=== PATIENT | female | born 1940 | race Caucasian/White ===

== ENCOUNTER 2019-09-03 13:20 | Inpatient (IN) ==
[2019-09-03] MEDS ORDERED: ASPIRIN PO ONE (13:52)
--- NOTE | 2019-09-03 14:19 | EKG Report ---
Test Performed on : 09/03/2019 1:58:19 PM Test Reason : sob Blood Pressure : / mmHG Vent. Rate : 076 BPM Atrial Rate : 076 BPM P-R Int : 106 ms QRS Dur : 090 ms QT Int : 392 ms P-R-T Axes : 000 -15 095 degrees QTc Int : 441 ms Sinus rhythm. with short HI Left ventricular hypertrophy with repolarization abnormality Abnormal ECG No previous ECGs available Unconfirmed Result
--- NOTE | 2019-09-03 14:27 | Diag Imaging Result Doc PS360 ---
EXAM: CHEST-2 VIEWS 09/03/2019 HISTORY: sob TECHNIQUE: PA and lateral chest COMMENT: There is cardiomegaly, interstitial pulmonary edema, and small right pleural effusion. There are no previous studies. IMPRESSION: Pulmonary edema, cardiomegaly, and right pleural effusion. Electronically signed by Wade Diana 09/03/2019 2:25 PM
[2019-09-03 14:57] LABS: BASO# 0.02 X1000 (0.0-0.2); BASO% 0.2 % (0.0-0.8); EOS# 0.09 X1000 (0.0-0.7); EOS% 0.8 % (0.0-10.0); HEMATOCRIT 34.8 % (37.0-47.0); HEMOGLOBIN 10.8 g/dL (12.0-16.0); IMM GRAN# 0.03 X1000 (0.0-0.04); IMM GRAN% 0.3 % (0.0-0.5); LYMPH% 17.1 % (20.5-51.1); MCH 27.8 PG (27-31); MCV 89.7 FL (81-99); MONO# 0.93 X1000 (0.11-0.59); MONO% 8.3 % (1.7-9.3); MPV 10.5 FL (7.4-10.4); NEUT# 8.17 X1000 (1.4-6.5); NEUT% 73.3 % (42.2-75.2); PLT 265 X1000 (130-400); RBC 3.88 XMIL (4.2-5.4); RDW 13.6 % (11.5-14.5); WBC 11.14 X1000 (4.8-10.8)
[2019-09-03 15:06] LABS: INR 1.14; PROTIME 14.8 Seconds (11.0-16.0)
[2019-09-03 15:25] LABS: ALB/GLOB RATIO 1.6; ALBUMIN 4.1 g/dL (3.5-5.0); CALCIUM 9.6 mg/dL (8.8-10.2); CREATININE 2.3 mg/dL (0.5-0.9); POTASSIUM 4.3 mmol/L (3.5-5.1); TOTAL BILIRUBIN 0.78 mg/dL (0.20-1.00); TOTAL PROTEIN 6.7 g/dL (6.3-8.3)
--- NOTE | 2019-09-03 17:18 | PROVIDER DOCUMENTATION ---
This chart was entered by Arabella Sanabria Scribe, acting as scribe for Ajay Lassiter MD. HPI-Respiratory General - General Chief Complaint: Shortness of Breath Stated Complaint: SOB Time Seen by Provider: 09/03/19 14:49 Source: patient - History of Present Illness-Resp Nature of Presenting Problem: 79 y/o female presents to ED with SOB onset 4 days ago. Pt reports she thinks it is a fluid issue. Pt states she has noticed increased swelling to her legs and abdomen. Pt reports she takes 60 mg lasix daily with variable urine output. Pt denies pain and does not report any other symptoms. Pt denies hx CHF. Patient does have hx of CKD and is followed by Dr. Corea. Pt is alert and in no acute distress. Quality of Pain: reports: none Severity in ED: reports: mild Onset/Duration: reports: 3 days ago, 4 days ago Timing: reports: still present Context: reports: other Exposure: reports: unknown cause Cough Quality/Degree: reports: no cough Current Respiratory Medication Therapy: Initiated see nurses note, Initiated other (lasix 60mg daily) Modifying Factors: improves with: nothing Associated Symptoms: reports: shortness of breath, short of breath, other (increased swelling to legs/abdomen) Review of Systems - Adult - REVIEW OF SYSTEMS - ADULT Constitutional: reports: no symptoms reported. denies: fever Eyes: reports: no symptoms reported. denies: eye pain Ears, Nose, Mouth & Throat: reports: no symptoms reported. denies: throat pain Cardiovascular: reports: edema. denies: chest pain Respiratory: reports: shortness of breath. denies: cough Gastrointestinal: reports: no symptoms reported. denies: abdominal pain Genitourinary: reports: no symptoms reported. denies: urinary retention Musculoskeletal: reports: joint pain (chronic knee arthritis) Integumentary: reports: rash (erythema of the LE), other (increased swelling to legs/abdomen) Neurological: reports: no symptoms reported Psychiatric: reports: no symptoms reported Endocrine: reports: no symptoms reported Hematologic/Lymphatic: reports: no symptoms reported, other (no bleeding) Allergic/Immunologic: reports: no symptoms reported All Other Systems: Reviewed and Negative Past History - Adult - PAST MEDICAL HISTORY-ADULT Review of Records: reports: Old Records Reviewed, Nursing Assessment Review, Medications Reviewed Major Childhood Illnesses: reports: denies history Genitourinary: reports: kidney disease Endocrine/Immune: reports: Diabetes - IMMUNIZATION STATUS Childhood Immunizations: See Nurse Assessment Flu Vaccine: See Nurse Assessment - FAMILY HISTORY Family History: other (kidney disease) - SOCIAL HISTORY Smoking: chew Substance Use: none/never Alcohol Use Frequency: never Physical Exam-General - CONSTITUTIONAL General Appearance: appears well, alert, no apparent distress - EYES Eyes: negative: conjuctival exudate, photophobia, scleral icterus - HEAD, EARS, NOSE, MOUTH & THROAT HENMT: normocephalic/atraumatic, moist mucous membranes, pharynx normal. negative: hearing deficit - NECK Neck: non-tender - RESPIRATORY Respiratory: respiratory distress (mild IWOB), decreased breath sounds - CARDIOVASCULAR Cardiovascular: regular rate, rhythm. negative: no edema (3+ bilateral LE edema) - GASTROINTESTINAL (ABDOMEN) Abdominal Exam: non tender, soft, distended (mild) - MUSCULOSKELETAL Extremity: non-tender, swelling - SKIN Integumentary: normal color, warm/dry, other (venous stasis changes of the LE) - NEUROLOGIC Neurologic: grossly normal - PSYCHIATRIC Psych/Mental Status: normal mood/affect, normal thought content, normal thought process - HEART Score HEART Score: History: Slightly Suspicious HEART Score: ECG: Non-Specific Repolarization Disturbance/LBBB/PM HEART Score: Age: > or = 65 Years HEART Score: Risk Factors for Atherosclerotic Disease: > or = 3 Risk Factors or History of Atherosclerotic Disease Progress - PLAN OF CARE/RESULTS Progress/Plan/Lab Results: Vital Signs - 8 hr 09/03/19 13:49 09/03/19 16:35 Temperature 98.5 F 98.0 F Pulse Rate 78 73 Respiratory Rate 19 19 Blood Pressure 197/78 179/61 O2 Sat by Pulse Oximetry 97 98 Laboratory Results - last 24 hr 09/03/19 09/03/19 09/03/19 14:02 14:02 14:02 WBC 11.14 H RBC 3.88 L Hgb 10.8 L Hct 34.8 L MCV 89.7 MCH 27.8 MCHC 31.0 L RDW Std Deviation 13.6 Plt Count 265 MPV 10.5 H Immature Gran % (Auto) 0.3 Neut % (Auto) 73.3 Lymph % (Auto) 17.1 L Lea % (Auto) 8.3 Eos % (Auto) 0.8 Baso % (Auto) 0.2 Immature Gran # (Auto) 0.03 Neut # (Auto) 8.17 H Lymph # (Auto) 1.90 Lea # (Auto) 0.93 H Eos # (Auto) 0.09 Baso # (Auto) 0.02 PT INR PTT (Actin FS) Sodium 139 Potassium 4.3 Chloride 99 Carbon Dioxide 26 Anion Gap 14 BUN 38 H Creatinine 2.3 H Estimated GFR/1.73 m2 21 BUN/Creatinine Ratio 17 Glucose 128 H Calculated Osmolality 288 Calcium 9.6 Total Bilirubin 0.78 AST 17 ALT 16 Alkaline Phosphatase 105 H Creatine Kinase 37 Troponin T Jhv-U-Stuylyrdvbr Pept 2682 H Total Protein 6.7 Albumin 4.1 Globulin 2.6 Albumin/Globulin Ratio 1.6 09/03/19 09/03/19 14:02 14:02 WBC RBC Hgb Hct MCV MCH MCHC RDW Std Deviation Plt Count MPV Immature Gran % (Auto) Neut % (Auto) Lymph % (Auto) Lea % (Auto) Eos % (Auto) Baso % (Auto) Immature Gran # (Auto) Neut # (Auto) Lymph # (Auto) Lea # (Auto) Eos # (Auto) Baso # (Auto) PT 14.8 INR 1.14 PTT (Actin FS) 40.0 Sodium Potassium Chloride Carbon Dioxide Anion Gap BUN Creatinine Estimated GFR/1.73 m2 BUN/Creatinine Ratio Glucose Calculated Osmolality Calcium Total Bilirubin AST ALT Alkaline Phosphatase Creatine Kinase Troponin T < 0.010 Yba-P-Kvsjutvzvoz Pept Total Protein Albumin Globulin Albumin/Globulin Ratio Orders Category Date Time Status Admit - [facility] Routine AdmDCTranf 09/03/19 17:38 Active Activity - Up Ad Yuli ORDERED Care 09/03/19 17:38 Active Call Admitting on Arrival AT ADMISSION Care 09/03/19 17:39 Active Cardiac Monitoring DIRECTED Care 09/03/19 13:52 Active Saline Loc NOW Care 09/03/19 13:52 Active Vital Signs Order ARRIVAL TO ROOM Care 09/03/19 17:38 Active Z-Document. for Tele Applied ORDERED Care 09/03/19 17:39 Active Diabetic Diet Diet 09/03/19 Diet Enter Time Active NPO Diet 09/04/19 00:01 Active CHEST-2 VIEWS [RAD] Stat Exams 09/03/19 13:52 Completed CBC WITH ELECTRONIC DIFF [HEME] Stat Lab 09/03/19 14:02 Completed CK PROFILE [SP CHEM] Stat Lab 09/03/19 14:02 Completed COMPREHENSIVE METABOLIC PANEL [CHEM] Stat Lab 09/03/19 14:02 Completed PRO B-NATRIURETIC PEPTIDE Stat Lab 09/03/19 14:02 Completed PROTIME WITH INR [COAG] Stat Lab 09/03/19 14:02 Completed PTT [COAG] Stat Lab 09/03/19 14:02 Completed TROPONIN T Stat Lab 09/03/19 14:02 Completed Aspirin Med 09/03/19 13:52 Discontinued 325 mg PO NOW ONE CP/SOB/Palp >45 yrs of Age Stat Oth 09/03/19 13:52 Ordered Oxygen Device Routine Oth 09/03/19 17:39 Active Telemetry [OM.EQ] Routine Oth 09/03/19 17:38 Active EKG [EKG] Stat Ther 09/03/19 13:52 Draft Transfer/Admit Order [TRANSFER] Routine Transfer 09/03/19 17:40 Ordered Result Diagrams: 09/03/19 14:02 09/03/19 14:02 - REASSESSMENT Reassessment #1 Status: other (Scribe note reviewed/updated.) Reassessment #2 Status: other (Discussed case with kyrie Garcia new onset CHF will plan to admit.) - EKG 1 Time of EKG reading by physician:: 14:29 EKG Read and Signed by:: Ajay Lassiter EKG Interpretation (*Must complete 3 of following elements*): Abnormal Rate: 76 Rhythm: Sinus with short WI [place]: normal QRS: LVH (with repolarization abnormality) WI Interval: shortened ST Wave: non-specific ST changes Comments: No STEMI. -Dr. Lassiter - XRAY 1 XRAY Study: Chest Impression: See EMR Report ([facility] - [address], [address], [place] [address] [facility] - [address] [place] [address] Department of Imaging Patient: LAVONNE CULLEN Date: 09/03/19MR#: [id number] : 1940DM Status: PRE ERAcct#: [id number] Age/Sex: 79/FRoom/Bed: Loc: ED Ordering Physician: Patt Soliman MD Family Physician: Pedro Cassidy MD Reason for Procedure: sob Signed EXAM: CHEST-2 VIEWS 09/03/2019 HISTORY: sob TECHNIQUE: PA and lateral chest COMMENT: There is cardiomegaly, interstitial pulmonary edema, and small right pleural effusion. There are no previous studies. IMPRESSION: Pulmonary edema, cardiomegaly, and right pleural effusion. Electronically signed by Wade Diana 09/03/2019 2:25 PM 09/03/19 1425 Interpreting Physician: Wade Diana MD Dictated Date/Time: 09/03/19 1424 cc: Patt Soliman MD; Pedro Cassidy MD) - CONSULTS/PCP/HOSPITALIST Notification #1 *Consult/PCP/Hospitalist*: Hospitalist Consult Disposition: Admit Departure - Departure Date of Disposition Decision: 09/03/19 Time of Disposition Decision: 17:47 DIAGNOSIS: Acute dyspnea Congestive heart disease Qualifiers: Heart failure type: other Qualified Code(s): I50.9 - Heart failure, unspecified Disposition: ADMITTED INPATIENT 09 Certified Medical Emergency: Emergent Condition: Fair Referrals and Follow-Ups: Pedro Cassidy MD [Primary Care Provider] - Discharge Education: Steps to Quit Smoking, [id number] - Critical Care Note This patient required my direct & personal management of CC.: No Attestation - Physician/ CRISTIAN Attestation Patient care was provided by Advanced Practice Provider:: No The physician spent face to face time with patient:: Yes Advanced Practice Provider documentation review:: Supervising physician onsite and consulted in the evaluation and care of this patient. The physician did have a face to face encounter with the patient. This chart was documented by the indicated scribe, (Arabella Sanabria Scribe) and accurately reflects the services I performed and decisions made by me, Ajay Lassiter MD, as attested by the provider's signature.
[2019-09-03] MEDS ORDERED: LASIX IV ONE (19:15)
--- NOTE | 2019-09-03 20:56 | HISTORY AND PHYSICAL ---
HISTORY OF PRESENT ILLNESS: Ms. Medina is a 79-year-old white female with a known case of diabetes and hypertension for a long time. She has insulin-dependent diabetes, obesity, hypertension, and recent onset of renal failure. The kidney failure has been there for about over a year now. She also has severe degenerative disc disease in the lumbar spine and severe arthritis in both knees. Never had any surgery except for some growth taken out from the right buttock. MEDICATIONS: Include upper verapamil/Isoptin 240, pravastatin 40 mg, KCl 8 mEq b.i.d., and irbesartan 75 mg daily. She also takes 20 mg of Lasix daily and Lantus insulin on a daily basis. SOCIAL HISTORY: She does not smoke and does not drink. ALLERGIES: No definite allergies recorded. REVIEW OF SYSTEMS: Respiratory: She has been having shortness of breath for the last several days. No history of chest pain. Musculoskeletal: She has generalized weakness. Cannot walk more than a block without getting out of breath. GI: No problems. : No problems. Endocrine: No problems. Breasts: No problems. PHYSICAL EXAMINATION: GENERAL: The patient is alert and oriented. VITAL SIGNS: Temperature normal. Pulse 78 per minute, regular. Respiratory rate 19 per minute, blood pressure 179/61. HEAD: Normocephalic. Pupils PERRLA. Fundus examination normal. NECK: Supple. JVP normal. There is no evidence of lymphadenopathy or thyroid enlargement ENT: Unremarkable. EXTREMITIES: There is bilateral mild pedal edema with some evidence of cellulitis. Pedal pulses feeble. BREAST EXAM: Not done. CHEST: Normal inspection. Lungs reveal poor air entry on the right base with occasional rales on the left base. PMI could not be located. CARDIOVASCULAR: Heart sounds normal. No murmur, gallop or rub noted. ABDOMEN: Obese. Hernial orifice normal. No guarding, rigidity, free fluid, masses, or organomegaly. Bowel sounds normal. RECTAL: Deferred. AUDIO VISUAL FACILITIES ENGINEER: Higher functions normal. Cranial nerves normal. Motor and sensory system examination unremarkable. Deep tendon reflexes normal. Plantars downgoing. Skull and spine examination normal for age. No cerebellar signs. No signs of meningeal irritation. Normal locomotor exam. SKIN: Unremarkable except for the evidence of cellulitis on both legs with bilateral leg edema. LABORATORY AND DIAGNOSTIC DATA: Chest x-ray shows pulmonary edema with a right-sided pleural effusion. EKG shows regular sinus rhythm with evidence of old anteroseptal myocardial infarction. ProBNP is elevated. ASSESSMENT: The patient is in congestive heart failure. PLAN: To give IV Lasix. Get a Cardiology consultation in the morning. cc: Pedro Cassidy MD
[2019-09-03] MEDS: LEVAQUIN 500 MG/D5W 500 MG/100 ML IVPB IV SCH (21:58)
[2019-09-03] MEDS: LOVENOX SUBQ SCH (21:58)
[2019-09-03] MEDS: MICRO-K PO SCH (22:34)
[2019-09-03 23:21] LABS: URINE SOURCE CLEAN CATCH
[2019-09-03 23:36] LABS: BILIRUBIN URINE NEGATIVE (NEGATIVE); BLOOD URINE NEGATIVE (NEGATIVE); COLOR YELLOW; GLUCOSE URINE NEGATIVE (NEGATIVE); KETONE URINE NEGATIVE (NEGATIVE); LEUKOCYTES URINE NEGATIVE (NEGATIVE); NITRITE URINE NEGATIVE (NEGATIVE); PROTEIN URINE 70 mg/dL (NEGATIVE); SP GRAVITY URINE 1.008; TURBIDITY URINE CLEAR (CLEAR); UROBILINOGEN URINE NORMAL (NORMAL)
[2019-09-03 23:39] LABS: UR EPITHELIAL CELLS <10 /HPF (<10); URINE BACTERIA NEGATIVE /HPF; URINE RBC <10 /HPF (<10); URINE WBC <10 /HPF (<10)
[2019-09-04] MEDS: PROTONIX PO SCH (05:59)
[2019-09-04] MEDS ORDERED: LASIX IV SCH (07:30)
[2019-09-04] MEDS ORDERED: ISOPTIN SR PO SCH ×2 (09:00→11:00)
[2019-09-04] MEDS ORDERED: AVAPRO PO SCH (09:00)
[2019-09-04] MEDS ORDERED: LASIX PO SCH (09:00)
[2019-09-04] MEDS: MICRO-K PO SCH ×2 (09:50→21:20)
[2019-09-04] MEDS: FISH OIL CONCENTRATE PO SCH (09:51)
[2019-09-04] MEDS: THERA M PLUS PO SCH (09:51)
[2019-09-04] MEDS: LOVENOX SUBQ SCH ×2 (09:52→21:20)
[2019-09-04] MEDS: PATIENT'S OWN MED PO SCH (09:54)
[2019-09-04] MEDS: LANTUS INSULIN SUBQ SCH (10:05)
--- NOTE | 2019-09-04 13:47 | PROGRESS NOTE ---
DATE: 09/04/2019 Ms. Medina has congestive heart failure, right-sided pleural effusion. She has diabetes. Her blood sugar was low. We are going to start some regular but diabetic diet as sugar was low and on account of being Friday and I personally feel like there will not be any procedures ordered. She has not been yet seen by the vp software support. -6 cc: Pedro Cassidy MD
--- NOTE | 2019-09-04 18:21 | CARDIOLOGY CONSULTATION ---
DATE: 09/04/2019 CHIEF COMPLAINT: Shortness of breath. HISTORY OF PRESENT ILLNESS: Ms Medina is a 79-year-old white female with a history of hypertension, diabetes, who presents for evaluation of shortness of breath that essentially progressed for the last 3 months since she was taken off her hydrochlorothiazide. It significantly worsened over the last 3 to 4 days. It sounds like she has been eating out quite a bit more over the last couple weeks specifically fast-food and other high salt locations. She denies any overt orthopnea. Her shortness of breath seems to occur with exertion over the distance of walking across a room. PAST MEDICAL HISTORY: 1. Significant for hypertension. 2. Diabetes . 3. Hyperlipidemia. SOCIAL HISTORY: She does not smoke. FAMILY HISTORY: Significant for hypertension. REVIEW OF SYSTEMS: A 10 system review of systems is negative except for those things mentioned in HPI. PHYSICAL EXAMINATION: She is afebrile, heart rate 82, blood pressure 184/66.General: She is in no acute distress. HEENT: Oropharynx is moist. Normal dentition. Eyes show pink conjunctivae, white sclerae. Neck: Shows no obvious thyromegaly or thyroid tenderness. Cardiovascular: She sounds to be in a regular rate and rhythm. She has a 2/6 systolic ejection murmur that is heard somewhat throughout the precordium. She has marked bilateral lower extremity edema. Her chest sounds relatively clear but very distant. She has no increased work of breathing. Abdomen: Soft, nontender. Neurological: She is moving all extremities well. She has no lateralizing deficits. PERTINENT DATA: She had a chest x-ray on presentation that shows pulmonary edema, cardiomegaly and a right-sided pleural effusion. Her electrocardiogram demonstrates sinus rhythm, poor R-wave progression, low voltage in the precordium. Her lab data shows a white count of 11.1, hematocrit 34, platelet count 265,000. Sodium 139, potassium 4.3, BUN 38, creatinine is 2.3, her proBNP is 2682. ASSESSMENT: Ms. Medina is a 79-year-old female with a history of hypertension and diabetes who presents with heart failure. PLAN: We will check an echocardiogram in the morning as well as repeat laboratories including a BMP, magnesium and proBNP. I will increase her ARB to 150 mg daily. We will continue on her IV Lasix. cc: MD Pedro Shah MD
[2019-09-04] MEDS: PRAVACHOL PO SCH (21:20)
[2019-09-04] MEDS: AMBIEN PO SCH (21:20)
[2019-09-04] MEDS: LASIX IV SCH (21:20)
[2019-09-04] MEDS: LEVAQUIN 500 MG/D5W 500 MG/100 ML IVPB IV SCH (21:21)
[2019-09-05] MEDS ORDERED: CATAPRES PO ONE (02:29)
[2019-09-05] MEDS ORDERED: CATAPRES PO PRN (02:29)
[2019-09-05] MEDS: AFRIN NASAL SPRAY NAS SCH ×3 (03:30→21:00)
[2019-09-05] MEDS: PROTONIX PO SCH (06:10)
[2019-09-05 08:22] LABS: CALCIUM 8.9 mg/dL (8.8-10.2); CREATININE 2.5 mg/dL (0.5-0.9); MAGNESIUM 2.2 mg/dL (1.5-2.7); POTASSIUM 4.4 mmol/L (3.5-5.1)
[2019-09-05] MEDS: LOVENOX SUBQ SCH ×2 (08:56→20:59)
[2019-09-05] MEDS: THERA M PLUS PO SCH (08:56)
[2019-09-05] MEDS: MICRO-K PO SCH ×2 (08:56→20:59)
[2019-09-05] MEDS: PATIENT'S OWN MED PO SCH (08:57)
[2019-09-05] MEDS: FISH OIL CONCENTRATE PO SCH (08:57)
[2019-09-05] MEDS: LANTUS INSULIN SUBQ SCH (08:57)
[2019-09-05] MEDS: LASIX IV SCH (08:57)
[2019-09-05] MEDS ORDERED: AVAPRO PO SCH (09:00)
--- NOTE | 2019-09-05 13:35 | CARDIOLOGY PROGRESS NOTE ---
DATE: 09/05/2019 SUBJECTIVE: Ms. Medina reports she is breathing somewhat better. She denies any orthopnea. PHYSICAL EXAMINATION: Vital Signs: Afebrile, heart rate is 69, blood pressure 153/80. Her I's and O's are negative. She has multiple incontinent voids. Her weight is 316 pounds today, measured at 326 pounds on 09/03/2019. General: She is in no acute distress. Cardiovascular: She is in a regular rate and rhythm. She has a 2/6 systolic ejection murmur heard throughout the precordium. She has 1+ bilateral lower extremity edema. Warm and well-perfused extremities. Chest: Clear, but distant. She has no increased work of breathing. Abdomen: Soft, nontender. PERTINENT DATA: ProBNP is 3175. BUN and creatinine 41 and 2.5, which is roughly stable to slightly elevated from yesterday. This appears well within her normal range over the last year or so. ASSESSMENT: Ms. Medina is a 79-year-old female who presented with volume overload. PLAN: Her exam sounds suggestive of possible aortic stenosis. Echo is pending. Her I's and O's seem negative at this point. She is on b.i.d. Lasix. I will actually change it daily. I have escalated her Avapro. We will stop the verapamil, and place her on amlodipine 5 mg b.i.d. This may allow addition of a beta-tam in the near future. Hopefully, we can avoid long-term clonidine in this patient. cc: MD Pedro Shah MD
--- NOTE | 2019-09-05 14:02 | ECHO REPORT ---
ORDER DATE: 09/05/2019 INDICATION: CHF. FINDINGS: 1. Right atrium is mildly enlarged at 4.2 cm. 2. Mild tricuspid regurgitation. RV systolic pressure of 56, suggesting pulmonary hypertension. 3. Enlarged right ventricle. Somewhat poor visualization of the right heart structures due to body habitus but probable normal RV systolic function. 4. No significant pulmonic insufficiency. 5. Mild left atrial enlargement with a dimension of 4.3 cm. 6. No mitral valve prolapse. Mild mitral regurgitation. Moderate mitral stenosis with a peak gradient across the valve of 16, mean of 4.8. Heavy mitral annular calcification. 7. Normal LV size, end-diastolic dimension of 3.7. Severe left ventricular hypertrophy with interventricular septal wall thickness of 1.7 cm. Normal LV systolic function with an estimated EF greater than or equal to 55%. 8. Aortic valve is calcified and with restriction in motion, consistent with moderate to severe aortic stenosis. The peak gradient across the valve is 59, mean of 38. Valve area by continuity equation is 0.8 cm2. There is no insufficiency. The dimensionless index across the valve is 0.28. 9. Aorta appears normal in visualized segments. 10. No pericardial effusion seen. cc: MD Pedro Shah MD
[2019-09-05] MEDS: NORVASC PO SCH (20:59)
[2019-09-05] MEDS: AMBIEN PO SCH (20:59)
[2019-09-05] MEDS: LEVAQUIN 500 MG/D5W 500 MG/100 ML IVPB IV SCH (20:59)
[2019-09-05] MEDS: PRAVACHOL PO SCH (21:04)
--- NOTE | 2019-09-06 04:14 | PROGRESS NOTE ---
DATE: 09/05/2019 Ms. Medina is recovering from CHF. She has right pleural effusion. She was seen by Dr. Turner Lopez. She had nosebleed, probably from the injury by the nasal prongs, and the bleeding has stopped. Her electrolytes status is stable. BUN is 41, creatinine is 2.5. She has mild renal failure. Will continue with the current management. -0 cc: Pedro Cassidy MD
[2019-09-06] MEDS: PROTONIX PO SCH (06:02)
--- NOTE | 2019-09-06 09:52 | Diag Imaging Result Doc PS360 ---
EXAM: CHEST-2 VIEWS HISTORY: CHF TECHNIQUE: Two views COMPARISON: 09/03/2019 FINDINGS: Poor inspiratory effort. There are small pleural effusions bilaterally. There is pulmonary edema. Heart is mildly enlarged. IMPRESSION: No interval improvement Electronically signed by Oscar Reese 09/06/2019 9:50 AM
--- NOTE | 2019-09-06 09:59 | PROGRESS NOTE ---
DATE: 09/06/2019 Ms. Medina is recovering from congestive heart failure. Her blood sugars are stable. She is going to have a chest x-ray for followup. We will continue the current management. Her culture studies have been negative. She is followed by a spring former machine. She may have some aortic stenosis. Her echocardiogram revealed that she had slight enlargement of the right atrium with mild tricuspid regurgitation. There is some left atrial enlargement. There is moderate to severe aortic stenosis. There is no insufficiency. We will continue with the current management. There is no pericardial effusion. We are repeating the chest x-ray today. -9 cc: Pedro Cassidy MD
[2019-09-06] MEDS: THERA M PLUS PO SCH (10:52)
[2019-09-06] MEDS: MICRO-K PO SCH ×2 (10:52→22:35)
[2019-09-06] MEDS: AFRIN NASAL SPRAY NAS SCH ×2 (10:52→22:35)
[2019-09-06] MEDS: NORVASC PO SCH ×2 (10:52→22:35)
[2019-09-06] MEDS: FISH OIL CONCENTRATE PO SCH (10:52)
[2019-09-06] MEDS: LANTUS INSULIN SUBQ SCH (10:53)
[2019-09-06] MEDS: LASIX IV SCH (10:53)
[2019-09-06] MEDS: AVAPRO PO SCH (10:53)
[2019-09-06] MEDS: LOVENOX SUBQ SCH ×2 (10:53→22:35)
[2019-09-06] MEDS: PATIENT'S OWN MED PO SCH (10:53)
[2019-09-06] MEDS ORDERED: BLISTEX MEDICATED BERRY LIP BALM TOP ONE (11:00)
--- NOTE | 2019-09-06 19:25 | CARDIOLOGY PROGRESS NOTE ---
DATE: 09/06/2019 SUBJECTIVE: Ms. Medina reports her breathing has improved, as has her edema. PHYSICAL EXAMINATION: Vital Signs: She is afebrile. Heart rate 79, blood pressure 157/67. Systolics have been anywhere from the 130s to 180s. Her inputs and outputs appear markedly negative, although her intake is poorly traced. Her weight is 315 pounds. Initial bed weight was 326 pounds on the 3rd. Generally: No acute distress. Cardiovascular: She sounds to be in a regular rate and rhythm. She has a 2/6 systolic ejection murmur at the right upper sternal border. She has 1+ bilateral lower extremity edema. Chest: Exam sounds distant, relatively clear. Abdomen: Soft, nontender. PERTINENT DATA: Her proBNP yesterday was 3175. No other laboratories. ASSESSMENT: Ms. Medina is a 79-year-old female who presented with congestive heart failure, likely valvular in etiology secondary to aortic stenosis. PLAN: We will continue with titrations of her antihypertensive. She is on daily Lasix. I have added in carvedilol to her regimen today. We will recheck laboratories in the morning. She will likely need referral to the [facility] as an outpatient considering her mean gradient is 38, valve area of 0.8 cm sq. The dimensionless index is 0.28. She has a preserved ejection fraction with severe LVH. cc: MD Pedro Shah MD
[2019-09-06] MEDS: PRAVACHOL PO SCH (22:35)
[2019-09-06] MEDS: AMBIEN PO SCH (22:35)
[2019-09-06] MEDS: COREG PO SCH (22:35)
[2019-09-06] MEDS: LEVAQUIN 500 MG/D5W 500 MG/100 ML IVPB IV SCH (22:36)
[2019-09-07] MEDS: PROTONIX PO SCH (06:18)
[2019-09-07] MEDS: COREG PO SCH ×2 (08:57→21:19)
[2019-09-07] MEDS: MICRO-K PO SCH ×2 (08:57→21:19)
[2019-09-07] MEDS: NORVASC PO SCH ×2 (08:57→21:20)
[2019-09-07] MEDS: LASIX IV SCH (08:57)
[2019-09-07] MEDS: AVAPRO PO SCH (08:57)
[2019-09-07] MEDS: FISH OIL CONCENTRATE PO SCH (08:57)
[2019-09-07] MEDS: THERA M PLUS PO SCH (08:57)
[2019-09-07] MEDS: LOVENOX SUBQ SCH ×2 (08:58→21:20)
[2019-09-07] MEDS: LANTUS INSULIN SUBQ SCH (08:59)
[2019-09-07] MEDS: AFRIN NASAL SPRAY NAS SCH ×2 (08:59→21:25)
[2019-09-07 09:00] LABS: CALCIUM 9.3 mg/dL (8.8-10.2); CREATININE 2.7 mg/dL (0.5-0.9); POTASSIUM 4.6 mmol/L (3.5-5.1)
[2019-09-07] MEDS: PATIENT'S OWN MED PO SCH (11:02)
--- NOTE | 2019-09-07 11:31 | PROGRESS NOTE ---
DATE: 09/07/2019 Ms. Medina is doing better. She has [id number] aortic stenosis. She was seen by Dr. Lopez who is going to refer her to a industrial custodian in [place] for evaluation of the aortic stenosis. She has not had any syncopal episode in the past. Her breathing is better. She still has some bilateral congestion. We will probably discharge her in the morning. -9 cc: Pedro Cassidy MD
[2019-09-07] MEDS: APRESOLINE PO SCH ×2 (17:47)
--- NOTE | 2019-09-07 20:19 | CARDIOLOGY PROGRESS NOTE ---
DATE: 09/07/2019 SUBJECTIVE: Ms. Medina reports she is doing well. She has no complaints, tolerating oral intake. OBJECTIVE: Afebrile. Heart rate 63. Blood pressure 145/48. She continues to have systolics ranging from the 140s to 170s. Generally in no acute distress. Cardiovascularly she sounds to be in a regular rate and rhythm. She has 1+ lower extremity edema. Chest is clear bilaterally. She has no increased work of breathing. Abdomen is soft, nontender. Her weight is down from 326 on 09/03 to 314 today. LABORATORY DATA: Sodium 141, potassium 4.6, BUN 52, creatinine is 2.7. ASSESSMENT: Ms. Medina is a 79-year-old female with borderline severe aortic stenosis, congestive heart failure and chronic kidney disease. PLAN: I will switch her over to oral diuretics starting in the morning. Her blood pressure continues to run elevated. She is on Coreg and irbesartan. I will add in some hydralazine at 25 t.i.d. We will make the referral to the [facility] as an outpatient. cc: MD Pedro Shah MD
[2019-09-07] MEDS: LEVAQUIN 500 MG/D5W 500 MG/100 ML IVPB IV SCH (21:00)
[2019-09-07] MEDS: PRAVACHOL PO SCH (21:19)
[2019-09-07] MEDS: AMBIEN PO SCH (21:22)
[2019-09-08] MEDS: LEVAQUIN 500 MG/D5W 500 MG/100 ML IVPB IV SCH (03:16)
[2019-09-08] MEDS: PROTONIX PO SCH ×2 (05:06→06:18)
[2019-09-08 07:14] VITALS: BP 148/55
[2019-09-08] MEDS: LANTUS INSULIN SUBQ SCH (08:37)
[2019-09-08] MEDS: MICRO-K PO SCH (08:38)
[2019-09-08] MEDS: AVAPRO PO SCH (08:38)
[2019-09-08] MEDS: LOVENOX SUBQ SCH (08:38)
[2019-09-08] MEDS: THERA M PLUS PO SCH (08:39)
[2019-09-08] MEDS: FISH OIL CONCENTRATE PO SCH (08:39)
[2019-09-08] MEDS: NORVASC PO SCH (08:39)
[2019-09-08] MEDS: APRESOLINE PO SCH (08:39)
[2019-09-08] MEDS: COREG PO SCH (08:39)
[2019-09-08] MEDS ORDERED: LASIX PO SCH (09:00)
--- NOTE | 2019-09-08 10:48 | PROGRESS NOTE ---
DATE: 09/08/2019 Ms. Medina has moderate to severe aortic stenosis, congestive heart failure. Her chest x-ray showed much improvement. Dr. Lopez had added hydralazine. I am going to let her continue on Lasix 60 mg. Add spironolactone and give some hydralazine, and discharge her today. -7 cc: Pedro Cassidy MD
--- NOTE | 2019-09-10 20:08 | DISCHARGE SUMMARY ---
ADMISSION DATE: 09/03/2019 DISCHARGE DATE: 09/08/2019 Ms. Medina, who is a 79-year-old white female, was admitted with congestive heart failure. She had right-sided pleural effusion. Chest x-ray initially revealed pulmonary edema, cardiomegaly, right pleural effusion. EKG had revealed sinus rhythm which showed p.r.n. to left ventricular hypertrophy with repolarization abnormality. Echocardiogram revealed right atrium mildly enlarged. Mild tricuspid regurgitation. No significant pulmonary insufficiency. Left atrial enlargement present. No mitral valve prolapse. Mild mitral regurgitation. Normal left ventricular size. Aortic wall was calcified with restriction in motion consistent with moderate to severe aortic stenosis. No pericardial effusion was noted. LABORATORY DATA: Revealed white count of 11.14, hemoglobin 10.8, hematocrit 34.8. INR was 1.14. Chemistry revealed electrolytes are normal. BUN was 52, creatinine 2.7, consistent with her usual one. A urinalysis was negative. COURSE IN THE HOSPITAL: Her blood cultures were negative. She was treated with IV Lasix. Cardiology consult was made and she continued to improve. She has severe tight aortic stenosis, moderate to severe aortic stenosis with calcification of the wall and she is referred to the [facility] at [facility]. She was seen by Dr. Turner Lopez here. FINAL DIAGNOSIS: 1. Aortic stenosis. 2. Hypertension. 3. Diabetes. 4. Congestive heart failure. 5. Right-sided pleural effusion. 6. Chronic renal failure opacity. cc: Pedro Cassidy MD
--- NOTE | 2019-09-18 13:02 | DISCHARGE SUMMARY ---
ADMISSION DATE: 09/03/2019 DISCHARGE DATE: 09/08/2019 ADDENDUM: Ms. Medina was admitted with congestive heart failure. She had hypertensive heart disease and part of the congestive heart failure could be due to valvular disorder, especially moderate to severe aortic stenosis. She has congestive heart failure secondary from both reasons. cc: Pedro Cassidy MD
--- NOTE | 2019-09-18 13:32 | DISCHARGE SUMMARY ---
ADMISSION DATE: 09/03/2019 DISCHARGE DATE: 09/08/2019 ADDENDUM: Ms Medina was admitted with shortness of breath. She had acute diastolic congestive heart failure. She has been hypertensive and has diabetes with obesity. cc: Pedro Cassidy MD
== END 2019-09-08 10:46 | disposition home or self-care (01) | DRG 291 ==
LOC: ED 13:20 → EDIPHOLD 18:27 → 3N 20:20
PROVIDERS: ADMIT Internal Medicine; ATTEND Internal Medicine